=== PATIENT | male | born 1985 | race Hispanic/Latino ===

== ENCOUNTER 2020-05-01 12:02 | Emergency (ER) | payer SELFPAY ==
[2020-05-01 13:32] VITALS: BP 151/82
== END 2020-05-01 13:40 | disposition home or self-care (01) | DRG 605 ==
LOC: ED 12:02
PROC: 0HQEXZZ Repair Left Lower Arm Skin, External Approach (ICD-10-PCS; principal; 2020-05-01)
DX: S61.512A Laceration without foreign body of left wrist, initial encounter (principal); W27.8XXA Contact with other nonpowered hand tool, initial encounter; Y93.89 Activity, other specified; Y92.009 Unspecified place in unspecified non-institutional (private) residence as the place of occurrence of the external cause